=== PATIENT | male | born 1940 | race Caucasian/White ===

== ENCOUNTER → 2016-11-27 | Outpatient (CLI) | payer OTHER ==
[~2016-11-27] VITALS: Ht 172.7 cm; Wt 83.9 kg
[~2016-11-27] MED LIST: ALBU83IN INH; HYDR200T3 PO; INCR1INH INH; LIDOCAINE 2% INJ 100 MG/5 ML SDV (FOR ANES.) As Ordered ONE; NABU50TA PO; NS 1,000 ML IV ONE; OMEP40CA2 PO; PROPOFOL 200 MG/20 ML VIAL As Ordered ONE; PROZ20CA11 PO; ZYRT10TA2 PO; fentaNYL 100 MCG/2 ML INJECTION (J3010) As Ordered ONE
--- NOTE | 2016-11-27 11:50 | ROOR ---
Patient Name: Segun Stewart Procedure Date: 11/27/2016 11:29 AM Date of : 1940 Age: 76 Room: [facility] Gender: Male Note Status: Finalized Procedure: Upper GI endoscopy Indications: Dysphagia Providers: Oskar LEY MD Referring MD: MILAGROS CARRENO DO Requesting Provider: Medicines: Monitored Anesthesia Care Complications: No immediate complications. Procedure: Pre-Anesthesia Assessment: - The heart rate, respiratory rate, oxygen saturations, blood pressure, adequacy of pulmonary ventilation, and response to care were monitored throughout the procedure. The Endoscope was introduced through the mouth, and advanced to the second part of duodenum. The upper GI endoscopy was accomplished without difficulty. The patient tolerated the procedure well. Findings: The Z-line was variable and was found 37 cm from the incisors. This was biopsied with a cold forceps for histology. Abnormal motility was noted in the esophagus. There are extra peristaltic waves in the esophageal body. The distal esophagus/lower esophageal sphincter is open. The exam was otherwise without abnormality. The scope was withdrawn. Dilation was performed in the entire esophagus with a Ellis dilator with no resistance at 50 Fr. The entire examined stomach was normal. The examined duodenum was normal. Impression: - Z-line variable, 37 cm from the incisors. Biopsied. - Abnormal esophageal motility. - The examination was otherwise normal. - Normal stomach. - Normal examined duodenum. - The esophagus generally is of smaller caliber than expected. The lower portion tapers slightly and smoothly. Dilation performed in the entire esophagus. Recommendation: - Observe patient's clinical course. - Use Prilosec (omeprazole) 40 mg PO BID. - Telephone endoscopist for pathology results in 2 weeks. - Continue present medications. Oskar Ley MD Oskar LEY MD 11/27/2016 11:50:35 AM This report has been signed electronically. Number of Addenda: 0 Note Initiated On: 11/27/2016 11:29 AM Estimated Blood Loss: Estimated blood loss: none.
[2016-11-27 12:19] VITALS: BP 119/81
== END | disposition home or self-care (01) ==
LOC: M OPP 10:09
PROVIDERS: ATTEND Internal Medicine Gastroenterology
DX: R13.10 Dysphagia, unspecified (principal); K22.8 Other specified diseases of esophagus; K22.4 Dyskinesia of esophagus; R12 Heartburn; M06.9 Rheumatoid arthritis, unspecified; M54.9 Dorsalgia, unspecified; F41.9 Anxiety disorder, unspecified; F32.9 Major depressive disorder, single episode, unspecified; J44.9 Chronic obstructive pulmonary disease, unspecified; Z85.118 Personal history of other malignant neoplasm of bronchus and lung; Z92.21 Personal history of antineoplastic chemotherapy; Z92.3 Personal history of irradiation; G47.30 Sleep apnea, unspecified; R06.83 Snoring; R06.09 Other forms of dyspnea; Z87.891 Personal history of nicotine dependence; Z88.8 Allergy status to other drugs, medicaments and biological substances; Z91.018 Allergy to other foods; Z79.899 Other long term (current) drug therapy; Z80.9 Family history of malignant neoplasm, unspecified
CPT/HCPCS: 43239; 43450; 88305; J3010

== ENCOUNTER → 2017-09-15 | Outpatient (REF) | payer OTHER ==
[2017-09-15 17:27] LABS: ALBUMIN 3.7 GM/DL (3.2-5.2); ANION GAP 4 MEQ/L (8-16); BLOOD UREA NITROGEN 16 MG/DL (7-18); CALCIUM LEVEL 9.1 MG/DL (8.8-10.2); CARBON DIOXIDE LEVEL 32 MEQ/L (21-32); CHLORIDE LEVEL 101 MEQ/L (98-107); CREATININE FOR GFR 1.06 MG/DL (0.70-1.30); GLOMERULAR FILTRATION RATE > 60.0 (>42); GLUCOSE, FASTING 103 MG/DL (70-100); PHOSPHORUS LEVEL 3.6 MG/DL (2.5-4.9); POTASSIUM SERUM 4.1 MEQ/L (3.5-5.1); SODIUM LEVEL 137 MEQ/L (136-145)
[2017-09-15 17:36] LABS: HEMATOCRIT 43.1 % (42.0-52.0); HEMOGLOBIN 14.6 g/dl (13.5-17.5); MEAN CORPUSCULAR HGB CONC 33.9 g/dl (32.0-36.5); MEAN CORPUSCULAR VOLUME 88.7 fl (80.0-96.0); PLATELET COUNT, AUTOMATED 242 10^3/uL (150-450); RED BLOOD COUNT 4.86 10^6/uL (4.30-6.10); RED CELL DISTRIBUTION WIDTH 13.7 % (11.5-14.5); WHITE BLOOD COUNT 8.6 10^3/uL (4.0-10.0)
== END ==
LOC: M LABDRAW1 15:18
DX: R07.2 Precordial pain (principal)
CPT/HCPCS: 80069